=== PATIENT | female | born 1935 | race Caucasian/White ===

== ENCOUNTER 2020-03-08 16:28 | Emergency (ER) | payer MEDICARE, OTHER, SELFPAY ==
[2020-03-08 16:29] VITALS: BP 151/83; PULSE 60; RESP 15; TEMP 36.5; O2SAT 94; BMI 31.1
--- NOTE | 2020-03-08 16:42 | EKG12_ITS ---
Test Reason : Blood Pressure : / mmHG Vent. Rate : 050 BPM Atrial Rate : 050 BPM P-R Int : 152 ms QRS Dur : 098 ms QT Int : 502 ms P-R-T Axes : 050 -03 031 degrees QTc Int : 457 ms Sinus bradycardia Minimal voltage criteria for LVH, may be normal variant Borderline ECG Confirmed by NIKA DE, CONNOR ([id number]), material expeditor MARYLOU DUMONT ([id number]) on 03/10/2020 3:21:46 PM Referred By: GRACIELA Confirmed By:CONNOR MAHER MD
--- NOTE | 2020-03-08 16:42 | CT_ITS ---
STUDY: CT BRAIN WITHOUT CONTRAST REASON FOR EXAM: Female, 84 years old. ATAXIA RADIATION DOSAGE (If Supplied By Facility): CTDIvol = ( 44.99 ) mGy, DLP = ( 762.36 ) mGycm TECHNIQUE: Transaxial CT imaging of the brain was performed without administration of intravenous contrast material. Individualized dose optimization techniques were used for this CT. COMPARISON: No relevant priors. FINDINGS: Normal soft tissue structures. Normal calvarium. There is moderate cerebral atrophy with widening of the extra-axial spaces and ventricular dilatation. There are areas of decreased attenuation within the white matter tracts of the supratentorial brain, consistent with microvascular disease changes. There is no intracranial hemorrhage. There are no findings of an acute ischemic infarction. Normal visualized paranasal sinuses. CT/Brain/Head without Contrast IMPRESSION: 1. No acute findings. 2. Microvascular ischemia. Atrophy. Electronically Signed: Yoselyn Vazquez MD at 18:32 EDT Tel , Service support ,
--- NOTE | 2020-03-08 16:44 | ED.VIS.GEN ---
History of Present Illness Chief Complaint: Dizziness Informant: Patient, Family Onset: Yesterday Narrative: Patient states that she has had dizziness since yesterday. When asked what she means by dizziness she states is very hard for her to describe it. She states it feels like her head is bobbing. I asked her if she has a sense that the room is spinning and she tells me know but 2 minutes later tells me yes. She states that it is not all the time and only when she gets up and walks around. However her daughter tells me that she was complaining of it when they were sitting in the car driving. Daughter states that she seemed to have problems walking but was able to walk back to the room without difficulty. Daughter tells me they took her heart rate and it was into the 50s. They do not know what her resting heart rate typically is. She denies any headache. No speech difficulty. No arm or leg weakness. No sensory changes. She denies any recent falls. No fevers. No chest pains or palpitations. No changes in recent medications. Daughter tells me the patient has a history of dementia Of note the patient takes metoprolol 100 mg twice daily. Please see MAR for complete list Past Medical History - Allergies and Home Meds Allergies/Adverse Reactions: Allergies No Known Allergies Allergy (Verified 07/14/15 08:34) Primary Care Physician: Juan Carlos Riley MD [Primary Care Provider] - Smoking Status: Never smoker Review of Systems General: Reports: - - Vague sense of dizziness/lightheadedness. Denies: Chills, Fever, Sweats Eyes: Reports: - - No tinnitus. Denies: Visual changes - bilaterally, Diplopia ENT: Denies: Rhinorrhea, Sore throat Cardiovascular: Denies: Chest pain, Palpitations Respiratory: Denies: Dyspnea, Cough, Dyspnea on exertion Gastrointestinal: Denies: Abdominal pain, Nausea, Vomiting, Diarrhea, Melena, Hematochezia Genitourinary: Denies: Dysuria, Hematuria, Frequency Musculoskeletal: Denies: Back pain, Extremity Pain Skin: Denies: Rash, Wounds Neurological: Denies: Headache, Weakness, Numbness Physical Exam Vital Signs/Narrative: Vital Signs Temp Pulse Resp BP Pulse Ox 03/08/20 16:29 97.7 F L 60 15 151/83 H 94 Inital Vital Signs reviewed: Yes General: Well nourished, Well developed, No Acute Distress Head: Normocephalic, Atraumatic Eyes: Perrl, EOMI, - - No nystagmus ENT: Moist mucous membranes, No rhinorrhea, - - Hard of hearing Neck: Supple, Nontender Cardiovascular: Regular rate, Regular rhythm, No murmurs Respiratory: No distress, CTA bilaterally, Chest nontender Abdomen: Soft, Nontender, Nondistended, Normal bowel sounds Back: Nontender, Normal Inspection Extremities: Nontender, No edema Skin: Normal color, No rash Neurological: Alert, Oriented x3, Cranial nerves II-XII grossly intact, Normal Strength, Normal Sensation, Normal Gait Psychological: Normal affect, Normal Mood Diagnostic/Tx/Re-eval - Medical Decision Making Patient's EKG shows a sinus bradycardia at a rate of 50. Basic labs are negative. Chest x-ray negative. CT of the brain negative. Orthostatics show a pretty consistent heart rate in the 50s but no orthostatic hypotension. I personally watched her ambulate several times and she is not ataxic. I get the sense that what she is trying to convey to us by saying the word dizzy is more of a lightheaded sensation. This I believe is probably due to a heart rate in the 50s. I have confirmed with the daughter her dose of metoprolol. She is actually on 50 twice a day. We can have her drop this down to 25 twice a day. She is to monitor her heart rate and record that and her blood pressure couple times a day and follow-up with her doctor in the week. They were advised that there may need to be further changes to her medications. If she is feeling unsafe or starting to have falls she needs to return to the emergency department. If there are any worsening symptoms they are welcome to return at any time. ED Disposition - Plan for ED Patient: Disposition: Home or Assisted Living Diagnosis: Symptomatic sinus bradycardia Instructions: ED Bradycardia Referrals: Juan Carlos Riley MD [Primary Care Provider] - 1 Week Additional Instructions: Please note the medication change below: Metoprolol 25 mg twice a day. (You may cut your 50 mg tablets in half).
--- NOTE | 2020-03-08 17:05 | RAD_ITS ---
STUDY: X-RAY CHEST REASON FOR EXAM: Female, 84 years old. Dizziness today TECHNIQUE: PA and lateral views of the chest. COMPARISON: None. FINDINGS: The lungs are clear and expanded. There is no demonstrated pleural abnormality. Normal size heart. Normal mediastinum and olaf. Normal visualized pulmonary arteries. Normal visualized aortic arch and descending thoracic aorta. Normal visualized thoracic spine. Normal visualized ribs, clavicles, and shoulders. There is no demonstrated abnormality of the visualized soft tissue structures of the upper abdomen. RAD/Chest PA and Lateral IMPRESSION: Normal x-ray examination of the chest. Electronically Signed: Yoselyn Vazquez MD at 17:20 EDT Tel , Service support ,
[2020-03-08 17:09] LABS: Absolute Lymphocyte Count 2.16 X10^3/uL (0.83-4.51); Absolute Neutrophil Count 3.5 X10^3/uL (2.0-7.7); Basophil# 0.05 X10^3/uL; Basophil% 0.8 % (0-1); Eosinophil# 0.27 X10^3/uL; Eosinophils% 4.2 % (0-5); Hematocrit 46.2 % (37-47); Hemoglobin 15.3 g/dL (12.0-15.0); Lymphocyte # 2.16 X10^3/ul (4.0); Lymphocyte % 33.3 % (19-41); Mean Corp Hgb Conc 33.1 g/dL (32-36); Mean Corpuscular Hgb 31.9 pg (27.0-32.0); Mean Corpuscular Volume 96.3 fL (81-99); Mean Platelet Vol. 10.2 fl (6.2-12.0); Monocyte# 0.51 X10^3/uL; Monocyte% 7.9 % (0-10); NRBC Flagged by Analyzer 0 % (0-5); Neutrophil # 3.49 X10^3/uL (2.7-7.7); Neutrophil % 53.6 % (47-70); Platelet Count 281 K/mm3 (150-450); RBC Distribution Width CV 13.4 % (11.6-14.6); RBC Distribution Width SD 47.8 fl (35.1-43.9); White Blood Count 6.5 K/mm3 (4.4-11.0)
[2020-03-08 17:28] VITALS: BP 125/68; PULSE 54; RESP 14; O2SAT 95
[2020-03-08 17:32] VITALS: BP 127/62; BP 128/73; BP 131/68; PULSE 52; PULSE 53; PULSE 58
[2020-03-08 17:38] LABS: AST(SGOT) 21 U/L (15-37); Alanine Aminotransfer ALT/SGPT 25 U/L (13-56); Albumin, Serum 3.8 g/dL (3.2-5.0); Alkaline Phosphatase 60 U/L (45-117); Anion Gap 7 (5-15); BUN 19 mg/dL (7-18); Calcium,Total 8.7 mg/dL (8.5-10.1); Chloride 112 mmol/L (98-107); EST Glomerular Filtration Rate 56 mL/min (>60); Est Glom Filt Rate - Afr Amer 68 mL/min (>60); Globulin 3.7 g/dL (2.2-4.2); Glucose 103 mg/dL (74-106); Potassium 3.7 mmol/L (3.5-5.1); Protein, Total 7.5 g/dL (6.4-8.2); Sodium Level 142 mmol/L (136-145)
[2020-03-08 17:58] LABS: Mucous, Urine 0 SEEN /hpf (<or=2+); Red Blood Cells-Urine 0 SEEN /hpf (0-5)
[2020-03-08 18:26] LABS: Color, Urine Yellow (Yellow); Glucose, Dipstick Normal (Normal); Ketone-Dipstick Negative (Negative); Leukocyte Esterase-Dipstick Negative /ul (Negative); Nitrite-Dipstick Negative (Negative); Occult Blood-Urine Negative /ul (Negative); Protein-Dipstick Negative (Negative); Urine Bilirubin Dipstick Negative (Negative); Urine Clarity Cloudy (Clear); Urine Urobilinogen Normal (Normal)
[2020-03-08 18:51] LABS: Hyaline Cast 0-5 SEEN /lpf (0-5)
[2020-03-08 18:52] LABS: Bacteria 1+ /hpf (None Seen); White Blood Cells 0-5 SEEN /hpf (0-5)
[2020-03-08 18:53] LABS: Squamous Epithelial Cells - UA 5-10 SEEN /hpf (5-10)
[2020-03-08 19:07] VITALS: BP 117/58; PULSE 49; RESP 18; O2SAT 96
== END 2020-03-08 19:10 | disposition home or self-care (01) ==
PROVIDERS: Emergency Provider Emergency Medicine; PCP Family Medicine
DX: R00.1 Bradycardia, unspecified (principal); F03.90 Unspecified dementia, unspecified severity, without behavioral disturbance, psychotic disturbance, mood disturbance, and anxiety
CPT/HCPCS: 70450; 71046; 80053; 81001; 84484; 85025; 93005; 99285

== ENCOUNTER 2020-12-02 15:35 | Emergency (ER) | payer MEDICARE, OTHER, SELFPAY ==
[2020-12-02 15:36] VITALS: BP 151/77; PULSE 90; RESP 18; TEMP 36.7; O2SAT 98; BMI 30.3
--- NOTE | 2020-12-02 15:51 | EKG12_ITS ---
Test Reason : Blood Pressure : / mmHG Vent. Rate : 075 BPM Atrial Rate : 075 BPM P-R Int : 146 ms QRS Dur : 092 ms QT Int : 412 ms P-R-T Axes : 049 006 036 degrees QTc Int : 460 ms Normal sinus rhythm with sinus arrhythmia Nonspecific ST and T wave abnormality Abnormal ECG Confirmed by NIKA DE, CONNOR ([id number]), editor map FALGUNI WHITE ([id number]) on 12/07/2020 10:43:54 AM Referred By: KENNEDY Confirmed By:CONNOR MAHER MD
--- NOTE | 2020-12-02 15:55 | ED.DCSUM_ITS ---
History of Present Illness Chief Complaint: Rash Detail of Chief Complaint: I do not feel well Informant: Patient, Family Onset: Today Context: Sudden Onset Timing: Continuous Quality: Neurolyse weakness, documented temperature 101.1, facial rash Location: Bilateral Current Severity: Moderate Maximum Severity: Moderate Worsened by: Nothing Relieved by: Nothing Associated Symptoms: Malaise, generalized weakness, fever Narrative: Patient was seen yesterday at the [facility]. She was diagnosed with shingles. She was placed on antiviral. Daughter took a picture. The rash did cross midline on the forehead. The rash is erythematous. There is no blistering or crusting noted. Daughter states she had a document temperature 101.1. Daughter states she is not her normal self. She is not disoriented, however. Daughter is concerned about her eyes. When asked specifically what her concerns were she responded look at them . She denies headache. Denies double vision or blurred vision. She does report drainage from her right eye. She also reports decreased hearing. She denies sore throat. She feels like there is phlegm stuck in her throat. She denies shortness of breath or cough. Denies chest pain. She denies nausea, vomiting diarrhea. She denies urologic symptoms. Her urine was tested at the [facility] and was negative. 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 (3) Anxiety and depression Status: Chronic (4) Hypertension Status: Chronic (5) Obesity (BMI 30.0-34.9) Status: Chronic Past Medical History - Allergies and Home Meds Allergies/Adverse Reactions: Allergies promethazine [From Phenergan] Adverse Reaction (Verified 12/02/20 15:41) PT UNSURE OF REACTION Primary Care Physician: Juan Carlos Riley MD [Primary Care Provider] - Prior records reviewed: Yes Surgical History: - - Bowel resection at [facility] 2016 for colon cancer Lives: With Family Smoking Status: Never smoker Alcohol: None Drugs: None Review of Systems General: Reports: Chills, Fever, Malaise. Denies: Subjective Eyes: Reports: - - Neutral right eye. Denies: Visual changes - bilaterally, Blurred Vision - bilaterally, Diplopia ENT: Reports: Sore throat - Limb and throat, - - Decreased hearing. Denies: Rhinorrhea Cardiovascular: Denies: Chest pain, Palpitations Respiratory: Denies: Dyspnea, Cough, Sputum, Dyspnea on exertion Gastrointestinal: Denies: Abdominal pain, Nausea, Vomiting, Diarrhea Genitourinary: Denies: Dysuria, Hematuria, Frequency Musculoskeletal: Denies: Myalgias, Arthralgias, Neck pain, Back pain, Swelling, Extremity Pain Skin: Reports: Rash. Denies: Abscess, Abrasions Neurological: Reports: Headache, Weakness. Denies: Parasthesia, Numbness Endocrine: Denies: Polyuria, Polydipsia Hematologic: Denies: Easy bruising Physical Exam Vital Signs/Narrative: Vital Signs Temp Pulse Resp BP Pulse Ox 12/02/20 15:36 98.0 F 90 18 151/77 H 98 Inital Vital Signs reviewed: Yes General: Well nourished, Well developed, Obese, No Acute Distress Head: Normocephalic, Atraumatic Eyes: Perrl, EOMI, - - Is injected on the right and there is drainage noted.. Negative for: Pale conjunctiva, Scleral icterus ENT: Moist mucous membranes, No rhinorrhea, - - Has erythematous rash bilateral consistent with erysipelas Neck: Supple, Nontender, No lymphadenopathy, No JVD Cardiovascular: Regular rate, Regular rhythm, No murmurs, Normal S1, Normal S2 Respiratory: No distress, CTA bilaterally, Chest nontender Abdomen: Soft, Nontender, Nondistended, Normal bowel sounds Rectal: Deferred Back: Nontender, Normal Inspection. Negative for: CVA tenderness Extremities: Nontender, No edema Skin: Normal color, Rash. Negative for: Cyanosis, Diaphoresis, Jaundice Neurological: Oriented x3, Cranial nerves II-XII grossly intact, Normal Strength, Normal Sensation, Normal DTR. Negative for: Alert - Patient is awake Psychological: - - Affect is flat Diagnostic/Tx/Re-eval Laboratory Results 12/02/20 12/02/20 16:14 16:14 WBC 10.5 RBC 4.88 Hgb 14.9 Hct 45.7 MCV 93.6 MCH 30.5 MCHC 32.6 RDW Std Deviation 45.1 H RDW Coeff of Esdras 13.2 Plt Count 258 MPV 9.9 Immature Gran % (Auto) 0.400 Neut % (Auto) 80.4 H Lymph % (Auto) 10.1 L Rush % (Auto) 7.2 Eos % (Auto) 1.5 Baso % (Auto) 0.4 Absolute Neuts (auto) 8.4 H Absolute Lymphs (auto) 1.06 Nucleated RBC % 0 Sodium 138 Potassium 3.4 L Chloride 108 H Carbon Dioxide 24.0 Anion Gap 6 BUN 9 Creatinine 1.01 Estim Creat Clear Calc 38.82 Est GFR (MDRD) Af Amer 67 Est GFR (MDRD) Non-Af 56 L BUN/Creatinine Ratio 8.9 L Glucose 120 H Calcium 9.2 Total Bilirubin 0.80 AST 12 L ALT 18 Alkaline Phosphatase 70 Total Protein 7.8 Albumin 3.4 Globulin 4.4 H Albumin/Globulin Ratio 0.8 L - Medical Decision Making Document temperature 101.1 heart rate of 90 and evidence of erysipelas we will treat with Unasyn for skin infection and sepsis work-up was initiated. Based on the picture of the daughter took and the fact that the rash across midline doubt this is shingles. Patient disposition per afternoon physician Dr. Abraham Espinosa ED Disposition - Plan for ED Patient: Diagnosis: Erysipelas Referrals: Juan Carlos Riley MD [Primary Care Provider] -
[2020-12-02 16:22] VITALS: BP 130/73; PULSE 77; RESP 21; O2SAT 96
[2020-12-02 16:25] LABS: Absolute Lymphocyte Count 1.06 X10^3/uL (0.83-4.51); Absolute Neutrophil Count 8.4 X10^3/uL (2.0-7.7); Basophil# 0.04 X10^3/uL; Basophil% 0.4 % (0-1); Eosinophil# 0.16 X10^3/uL; Eosinophils% 1.5 % (0-5); Hematocrit 45.7 % (37-47); Hemoglobin 14.9 g/dL (12.0-15.0); Lymphocyte # 1.06 X10^3/ul (4.0); Lymphocyte % 10.1 % (19-41); Mean Corp Hgb Conc 32.6 g/dL (32-36); Mean Corpuscular Hgb 30.5 pg (27.0-32.0); Mean Corpuscular Volume 93.6 fL (81-99); Mean Platelet Vol. 9.9 fl (6.2-12.0); Monocyte# 0.76 X10^3/uL; Monocyte% 7.2 % (0-10); NRBC Flagged by Analyzer 0 % (0-5); Neutrophil # 8.44 X10^3/uL (2.7-7.7); Neutrophil % 80.4 % (47-70); Platelet Count 258 K/mm3 (150-450); RBC Distribution Width CV 13.2 % (11.6-14.6); RBC Distribution Width SD 45.1 fl (35.1-43.9); Red Blood Count 4.88 M/mm3 (4.2-5.4); White Blood Count 10.5 K/mm3 (4.4-11.0)
[2020-12-02] MEDS: 0.9% Normal Saline 1,000 ML 250 ML IV (16:25)
[2020-12-02 16:48] LABS: ALB/GLOB Ratio 0.8 RATIO (0.9-2.4); AST(SGOT) 12 U/L (15-37); Alanine Aminotransfer ALT/SGPT 18 U/L (13-56); Albumin, Serum 3.4 g/dL (3.2-5.0); Alkaline Phosphatase 70 U/L (45-117); Anion Gap 6 (5-15); BUN 9 mg/dL (7-18); BUN/Creat Ratio 8.9 RATIO (10-20); Calcium,Total 9.2 mg/dL (8.5-10.1); Chloride 108 mmol/L (98-107); Creatinine, Serum 1.01 mg/dL (0.55-1.02); EST Glomerular Filtration Rate 56 mL/min (>60); Est Glom Filt Rate - Afr Amer 67 mL/min (>60); Estimated Creatinine Clearance 38.82 ml/min; Globulin 4.4 g/dL (2.2-4.2); Glucose 120 mg/dL (74-106); Potassium 3.4 mmol/L (3.5-5.1); Protein, Total 7.8 g/dL (6.4-8.2); Sodium Level 138 mmol/L (136-145)
[2020-12-02 16:58] LABS: Prothrombin Time (Protime)PT. 13.1 SECONDS (11.7-14.9)
[2020-12-02 16:59] LABS: Partial Thromboplast Time 31.2 Seconds (24.1-36.2)
[2020-12-02 17:01] LABS: Lactic Acid 1.2 mmol/L (0.4-1.9)
[2020-12-02 18:33] VITALS: PULSE 71; RESP 19; TEMP 37.2; O2SAT 99
--- NOTE | 2020-12-02 18:51 | ED.VISSUMM ---
- ER Visit Summary Date of Service: 12/02/20 This patient was checked out to me with labs pending. Test Results: Abnormal Lab Results 12/02/20 12/02/20 12/02/20 16:14 16:14 16:14 WBC 10.5 RBC 4.88 Hgb 14.9 Hct 45.7 MCV 93.6 MCH 30.5 MCHC 32.6 RDW Std Deviation 45.1 H RDW Coeff of Esdras 13.2 Plt Count 258 MPV 9.9 Immature Gran % (Auto) 0.400 Neut % (Auto) 80.4 H Lymph % (Auto) 10.1 L Carver % (Auto) 7.2 Eos % (Auto) 1.5 Baso % (Auto) 0.4 Absolute Neuts (auto) 8.4 H Absolute Lymphs (auto) 1.06 Nucleated RBC % 0 PT 13.1 INR 1.0 APTT 31.2 Sodium 138 Potassium 3.4 L Chloride 108 H Carbon Dioxide 24.0 Anion Gap 6 BUN 9 Creatinine 1.01 Estim Creat Clear Calc 38.82 Est GFR (MDRD) Af Amer 67 Est GFR (MDRD) Non-Af 56 L BUN/Creatinine Ratio 8.9 L Glucose 120 H Lactic Acid Calcium 9.2 Total Bilirubin 0.80 AST 12 L ALT 18 Alkaline Phosphatase 70 Total Protein 7.8 Albumin 3.4 Globulin 4.4 H Albumin/Globulin Ratio 0.8 L 12/02/20 16:14 WBC RBC Hgb Hct MCV MCH MCHC RDW Std Deviation RDW Coeff of Esdras Plt Count MPV Immature Gran % (Auto) Neut % (Auto) Lymph % (Auto) Carver % (Auto) Eos % (Auto) Baso % (Auto) Absolute Neuts (auto) Absolute Lymphs (auto) Nucleated RBC % PT INR APTT Sodium Potassium Chloride Carbon Dioxide Anion Gap BUN Creatinine Estim Creat Clear Calc Est GFR (MDRD) Af Amer Est GFR (MDRD) Non-Af BUN/Creatinine Ratio Glucose Lactic Acid 1.2 Calcium Total Bilirubin AST ALT Alkaline Phosphatase Total Protein Albumin Globulin Albumin/Globulin Ratio Emergency Department Course and Treatment: Patient received Unasyn IV. She is resting comfortably. Treatment Plan: I discussed the lab results with the patient. She feels well and would like to go home. She clearly has erysipelas and will be placed on amoxicillin. Follow-up with her primary care physician in 2 days for a wound check. Return to the emergency department for any worsening symptoms. Disposition: To home in improved and stable condition. Impression: 1. Erysipelas to the maxilla bilaterally. This note was generated with [employer] dictation software. It may contain incorrect words, spelling, and punctuation that were not noted in review of the chart prior to signing ED Disposition - Plan for ED Patient: Disposition: Home or Assisted Living Diagnosis: Erysipelas Instructions: ED Cellulitis, Facial Prescriptions: Amoxicillin 500 mg PO TID #21 tab Prescription Printed Ondansetron [Zofran Odt] 4 mg PO Q8H PRN PRN #10 tab PRN Reason: Nausea Prescription Printed Referrals: Juan Carlos Riely MD [Primary Care Provider] - 2 Days
[2020-12-02 19:23] VITALS: BP 138/91; PULSE 70; RESP 15; O2SAT 98
== END 2020-12-02 19:24 | disposition home or self-care (01) ==
PROVIDERS: Emergency Provider Emergency Medicine; PCP Family Medicine
DX: A46 Erysipelas (principal); I10 Essential (primary) hypertension; F32.9 Major depressive disorder, single episode, unspecified; F41.9 Anxiety disorder, unspecified; E66.9 Obesity, unspecified; R23.3 Spontaneous ecchymoses; Z79.899 Other long term (current) drug therapy
CPT/HCPCS: 80053; 83605; 85025; 85610; 85730; 87040; 93005; 96365; 96366; 99285; J7030; A4216; J0295

== ENCOUNTER 2021-06-22 16:40 | Emergency (ER) | payer MEDICARE, OTHER, SELFPAY ==
[2021-06-22 16:40] VITALS: BP 115/61; PULSE 66; RESP 18; TEMP 36.8; O2SAT 97; BMI 29.8
--- NOTE | 2021-06-22 17:15 | RAD_ITS ---
STUDY: X-RAY - LEFT ANKLE REASON FOR EXAM: Female, 85 years old. FELL DOWN STAIRS TECHNIQUE: 3 view(s) of the ankle. COMPARISON: None. FINDINGS: Normal visualized distal tibia and fibula. Normal medial and lateral malleoli. Normal tibiotalar articulation and ankle mortise. Normal visualized talus and calcaneus. The visualized subtalar, talonavicular, calcaneocuboid and tarsal articulations are normal. There is no demonstrated fracture. The soft tissue structures are unremarkable. RAD/Ankle min 3 Views IMPRESSION: No visualized acute process Electronically Signed: Tico Andrade MD at 18:35 EDT , Service support ,
--- NOTE | 2021-06-22 17:18 | RAD_ITS ---
STUDY: X-RAY - LEFT FOOT CLINICAL: Female, 85 years old. FALL TECHNIQUE: 3 view(s) of the foot. COMPARISON: None. FINDINGS: Normal talus, calcaneus, and tarsal bones. Normal visualized subtalar, talonavicular, calcaneocuboid, tarsal and tarsometatarsal articulations. A healed fracture deformity of the second metatarsal base is present. Scattered degenerative changes are present throughout the foot. Mild degenerative narrowing of the MTP and IP joints throughout the foot. The soft tissue structures are unremarkable. There is no demonstrated fracture. RAD/Foot min 3 Views IMPRESSION: 1. No visualized acute process. 2. A healed fracture deformity of the second metatarsal base is present. Electronically Signed: Tico Andrade MD at 18:42 EDT , Service support ,
--- NOTE | 2021-06-22 17:49 | EDS_ITS ---
HPI History of Present Illness Chief Complaint: Lower Extremity Injury Informant: patient and family Occured/Mechanism Mechanism/Context: Yes fall Onset/Context/Timing Onset: Today Quality of Pain: Aching Current Severity: Mild Maximum Severity: Mild Narrative Narrative: Patient presents with pain to her left foot and ankle after a fall. She was coming down some steps and fell down the last 1 or 2 steps. She is complaining of pain to the left foot and ankle. She denies any other injury. She is not on anticoagulants. [facility] Medical History Anxiety and depression Cauda equina spinal cord injury Dementia Hypertension Home Medications topiramate 25 mg PO BID 07/17/15 [History Last Taken 12/02/20] acetaminophen 500 mg PO Q6H PRN PRN 07/21/15 [History Last Taken 12/01/20] amoxicillin 500 mg PO TID #21 tab 12/02/20 [Rx Last Taken Unknown] citalopram 40 mg PO DAILY 12/02/20 [History Last Taken 12/02/20] donepezil 10 mg PO QHS 12/02/20 [History Last Taken 12/01/20] fenofibrate nanocrystallized 145 mg PO DAILY 12/02/20 [History Last Taken 12/02/20] memantine 10 mg PO BID 12/02/20 [History Last Taken 12/02/20] ondansetron 4 mg PO Q8H PRN PRN #10 tab 12/02/20 [Rx Last Taken Unknown] quinapril 40 mg PO DAILY 12/02/20 [History Last Taken 12/02/20] valacyclovir 1,000 mg PO TID 12/02/20 [History Last Taken 12/02/20] Allergy/AdvReac Type Severity Reaction Status Date / Time promethazine [From Phenergan] AdvReac PT UNSURE Verified 06/22/21 16:42 OF REACTION Surgical History Status post lumbar laminectomy Social History Smoking Status: Never smoker ROS ROS ED Constitutional Constitutional ED: Denies chills or fever(s) Eyes Eyes: Denies change in vision ENT ENT ED: Denies sore throat Cardiovascular Cardiovascular: Denies chest pain Respiratory/Chest Respiratory/Chest: Denies cough or dyspnea Gastrointestinal Gastrointestinal: Denies abdominal pain, diarrhea, nausea or vomiting Genitourinary Genitourinary ED: Denies dysuria Musculoskeletal Musculoskeletal: Reports arthralgias; Denies back pain Integumentary Denies rash Neurologic Neurologic: Denies headache(s) or weakness Allergic/Immunologic Allergic/Immunologic ED: Denies urticaria EXAM Physical Exam Const Vital Signs: 06/22/21 16:40 Temperature 98.2 F Temperature Source Temporal Pulse Rate 66 Respiratory Rate 18 Blood Pressure 115/61 Blood Pressure Mean 79 Pulse Ox 97 Oxygen Delivery Method Room Air Positive well nourished and well developed General Appearance ED: well developed HEENT Reports normocephalic and head/scalp atraumatic Eyes PERRL and EOMs intact bilaterally Neck supple Chest Wall inspection of chest normal and palpation of chest normal Resp normal respiratory effort and clear to auscultation bilaterally Cardio regular rate and regular rhythm GI normal to inspection, nondistended, normoactive bowel sounds Palpation: soft Extremity normal to inspection Extremity Narrative: Tenderness to palpation across the proximal metatarsals. Mild tenderness at the lateral malleolus. No significant edema, ecchymosis, abrasions noted. Strong distal pulses with full range of motion. No tenderness of the proximal fibula or knee. Neuro oriented x3 and no sensory deficits noted Sensorium / Orientation: alert Motor Exam: strength 5/5 throughout Psych mental status grossly normal Skin no rashes or lesions noted MDM MDM MDM Narrative Medical decision making narrative: Patient declined anything for pain. Left foot and ankle x-rays were obtained per nursing protocol. Radiography Diagnostic Testing: Radiology Impression Ankle X-Ray 06/22/21 17:15 IMPRESSION: No visualized acute process Electronically Signed: Tico Andrade MD at 18:35 EDT , Service support , Foot X-Ray 06/22/21 17:18 IMPRESSION: 1. No visualized acute process. 2. A healed fracture deformity of the second metatarsal base is present. Electronically Signed: Tico Andrade MD at 18:42 EDT , Service support , Treatment and Re-Evaluation Comments:: Per my interpretation appears the patient has an old well-healed fracture in her foot. I do not see any acute fractures in the foot or ankle. Radiologist interpretation is reviewed and concurs. Lam wrap was applied to the left foot and ankle. She may weight-bear as tolerated. Discharge Plan Triage Chief Complaint: Lower Extremity Injury ED Provider: Ammy Lauren Dx/Rx/DC Orders Clinical Impression: Sprain of left foot, Sprain of ankle, left Instructions: ED Foot Sprain, ED Ankle Sprain (Adult) Prescriptions: No Action topiramate 25 MG tablet 25 mg PO BID RF: 0 acetaminophen 500 MG tablet 500 mg PO Q6H PRN PRN (Reason: Mild Pain) RF: 0 citalopram 40 MG tablet 40 mg PO DAILY RF: 0 valacyclovir 1,000 MG tablet 1,000 mg PO TID RF: 0 quinapril 40 MG tablet 40 mg PO DAILY RF: 0 memantine 10 MG tablet 10 mg PO BID RF: 0 donepezil 10 MG tablet,disintegrating 10 mg PO QHS RF: 0 fenofibrate nanocrystallized 145 MG tablet 145 mg PO DAILY RF: 0 amoxicillin 500 MG tablet 500 mg PO TID Qty: 21 RF: 0 ondansetron 4 MG tablet 4 mg PO Q8H PRN PRN (Reason: Nausea) Qty: 10 RF: 0 Primary Care Provider: Juan Carlos Riley Referrals: Juan Carlos Riley MD [Primary Care Provider] - 10-14 Days if not better Disposition Disposition: Home, Self Care
== END 2021-06-22 19:23 | disposition home or self-care (01) ==
PROVIDERS: Emergency Provider Emergency Medicine; PCP Family Medicine
DX: S93.602A Unspecified sprain of left foot, initial encounter (principal); S93.402A Sprain of unspecified ligament of left ankle, initial encounter; W10.9XXA Fall (on) (from) unspecified stairs and steps, initial encounter; Y93.01 Activity, walking, marching and hiking; Y92.9 Unspecified place or not applicable; Y99.8 Other external cause status; I10 Essential (primary) hypertension; F03.90 Unspecified dementia, unspecified severity, without behavioral disturbance, psychotic disturbance, mood disturbance, and anxiety; F32.9 Major depressive disorder, single episode, unspecified; F41.9 Anxiety disorder, unspecified; Z79.899 Other long term (current) drug therapy
CPT/HCPCS: 73610; 73630; 99282

== ENCOUNTER 2022-03-17 13:53 | Emergency (ER) | payer MEDICARE, OTHER, SELFPAY ==
[2022-03-17 13:55] VITALS: BP 96/83; PULSE 100; RESP 18; TEMP 36; O2SAT 95; BMI 32.5
--- NOTE | 2022-03-17 14:34 | EKG12_ITS ---
Test Reason : CP WITH COUGHING Blood Pressure : / mmHG Vent. Rate : 094 BPM Atrial Rate : 094 BPM P-R Int : 152 ms QRS Dur : 092 ms QT Int : 376 ms P-R-T Axes : 060 021 248 degrees QTc Int : 470 ms Normal sinus rhythm ST & T wave abnormality, consider inferior ischemia ST & T wave abnormality, consider anterolateral ischemia Prolonged QT Abnormal ECG Confirmed by NIKA DE, CONNOR ([id number]), offline editor FALGUNI WHITE ([id number]) on 03/21/2022 12:49:47 PM Referred By: SANDEE/GEOFF Confirmed By:CONNOR MAHER MD
--- NOTE | 2022-03-17 14:42 | EDS_ITS ---
HPI History of Present Illness Chief Complaint: Shortness of Breath Informant: patient and family Narrative Narrative: Patient here with granddaughter 6 to 7-day history of symptoms. Initial sinus congestion, patient taken to urgent care proxy 5 days ago diagnosed with sinus infection and put on Z-Wilfred last dose today. Since yesterday increasing productive cough. per granddaughter had chest pains yesterday. However currently patient denies any other symptoms. PCP was contacted yesterday placed on inhaler for wheezing and [place] states wheezing improving. However cough has been persistent. Patient denies fevers. Denies headache. Denies vomiting or diarrhea. Denies any history of asthma or COPD. Reported COVID testing urgent care negative and home test also negative. Patient is vaccinated had the booster, had COVID 2 days after booster in October. [facility] Medical History Anxiety and depression Cauda equina spinal cord injury Dementia Hypertension Home Medications topiramate 25 mg PO BID 07/17/15 [History Last Taken 12/02/20] acetaminophen 500 mg PO Q6H PRN PRN 07/21/15 [History Last Taken 12/01/20] citalopram 40 mg PO DAILY 12/02/20 [History Last Taken 12/02/20] donepezil 10 mg PO QHS 12/02/20 [History Last Taken 12/01/20] fenofibrate nanocrystallized 145 mg PO DAILY 12/02/20 [History Last Taken 12/02/20] memantine 10 mg PO BID 12/02/20 [History Last Taken 12/02/20] ondansetron 4 mg PO Q8H PRN PRN #10 tab 12/02/20 [Rx Last Taken Unknown] quinapril 40 mg PO DAILY 12/02/20 [History Last Taken 12/02/20] Allergy/AdvReac Type Severity Reaction Status Date / Time promethazine [From Phenergan] AdvReac PT UNSURE Verified 03/17/22 13:55 OF REACTION Surgical History Status post lumbar laminectomy Social History Smoking Status: Never smoker ROS ROS ED Constitutional Constitutional ED: Denies chills, fever(s) or sweats Eyes Eyes: Denies change in vision ENT ENT ED: Denies dysphagia or sore throat Cardiovascular Cardiovascular: Denies chest pain, leg edema, palpitations or racing heartbeat Respiratory/Chest Respiratory/Chest: Reports cough and dyspnea; Denies dyspnea on exertion Gastrointestinal Gastrointestinal: Denies abdominal pain, diarrhea, nausea or vomiting Genitourinary Genitourinary ED: Denies dysuria, hematuria or urinary frequency Musculoskeletal Musculoskeletal: Denies back pain, extremity pain or neck pain Integumentary Denies rash or wounds Neurologic Neurologic: Denies headache(s), paresthesias or weakness EXAM Physical Exam Const Vital Signs: 03/17/22 13:55 03/17/22 14:57 03/17/22 16:23 Temperature 96.8 F L 96.8 F L Temperature Source Temporal Temporal Pulse Rate 100 100 77 Respiratory Rate 18 18 21 H Blood Pressure 96/83 H 96/83 H Blood Pressure Mean 87 87 Pulse Ox 95 95 93 Oxygen Delivery Method Room Air Room Air Positive well nourished and well developed Constitutional Narrative: Hard of hearing. General Appearance ED: well developed and NAD HEENT Reports moist mucous membranes normocephalic and atraumatic Eyes PERRL, EOMs intact bilaterally and conjunctivae normal General Eye ED: Yes normal appearance of both eyes Neck no lymphadenopathy and supple General: Negative for tenderness Chest Wall Chest: Negative for tenderness Resp normal respiratory effort and normal air movement Effort and Inspection: symmetric chest movement; Negative for respiratory distress Cardio regular rate, regular rhythm and no murmurs Peripheral Pulses: pulses 2+ throughout GI normal to inspection, nondistended, normoactive bowel sounds and non-tender Palpation: Negative for guarding or rebound tenderness present Back/Spine no CVA tenderness and no thoracic nor lumbar tenderness Extremity normal to inspection General Extremety ED: Negative for edema or tenderness General Extremity: Negative for edema Neuro oriented x3 and no sensory deficits noted Sensorium / Orientation: awake and alert Skin no rashes or lesions noted and no wounds MDM MDM MDM Narrative Medical decision making narrative: Patient denies any current chest pains however granddaughter stated she reported symptoms yesterday. Vital stable. EKG with new T wave inversions lateral leads. Laboratory work including troponin will be ordered chest x-ray. We will recheck COVID testing. 1615: Chest x-ray 1 view reviewed by myself and read by radiology shows no acute process. Laboratory studies normal normal white count troponin was negative. COVID testing obtained and negative. Discussed with patient and family likely viral syndrome. We will continue inhaler for wheezing as needed. Continue oral fluids for hydration. Discussed symptoms should improve with time. I discussed EKG abnormalities with new T wave inversions, possibility of echocardiogram for further work-up as an outpatient. All questions were answered. Lab Data Attestation: I reviewed the patient's lab results. Labs: Laboratory Results - last 24 hr 03/17/22 03/17/22 15:05 15:05 WBC 6.9 RBC 5.08 Hgb 15.9 H Hct 47.7 H MCV 93.9 MCH 31.3 MCHC 33.3 RDW Std Deviation 46.3 H RDW Coeff of Esdras 13.3 Plt Count 234 MPV 10.4 Immature Gran % (Auto) 0.300 Neut % (Auto) 84.2 H Lymph % (Auto) 6.6 L Baker % (Auto) 6.3 Eos % (Auto) 1.9 Baso % (Auto) 0.7 Absolute Neuts (auto) 5.8 Absolute Lymphs (auto) 0.46 L Nucleated RBC % 0 Differential Comment SCANNED Sodium 140 Potassium 3.9 Chloride 111 H Carbon Dioxide 20.0 L Anion Gap 9 BUN 18 Creatinine 0.95 Estim Creat Clear Calc 37.39 Est GFR (MDRD) Af Amer 72 Est GFR (MDRD) Non-Af 60 BUN/Creatinine Ratio 19.0 Glucose 172 H Calcium 9.1 Troponin I High Sens 3 Radiography Diagnostic Testing: Clinical Impression(s) from Imaging Studies Chest X-Ray 03/17/22 15:10 IMPRESSION: No acute abnormality is seen. Electronically Signed: Sid Yao MD at 15:23 EDT , EKG Initial EKG: Attestation: I personally reviewed and interpreted this EKG as follows: Comments: Sinus rate of 94, no ST changes there is diffuse T wave invers ions inferior lateral leads, compared to November 2020 T wave versions new on V4 to V6. Discharge Plan Triage Chief Complaint: Shortness of Breath Other Complaint: Chest Pain Fatigue ED Provider: Francisco Javier Zarate Dx/Rx/DC Orders Clinical Impression: Acute bronchitis, viral, Dementia Instructions: Acute Bronchitis Prescriptions: No Action topiramate 25 MG tablet 25 mg PO BID RF: 0 acetaminophen 500 MG tablet 500 mg PO Q6H PRN PRN (Reason: Mild Pain) RF: 0 citalopram 40 MG tablet 40 mg PO DAILY RF: 0 quinapril 40 MG tablet 40 mg PO DAILY RF: 0 memantine 10 MG tablet 10 mg PO BID RF: 0 donepezil 10 MG tablet,disintegrating 10 mg PO QHS RF: 0 fenofibrate nanocrystallized 145 MG tablet 145 mg PO DAILY RF: 0 ondansetron 4 MG tablet 4 mg PO Q8H PRN PRN (Reason: Nausea) Qty: 10 RF: 0 Primary Care Provider: Juan Carlos Riley Referrals: Juan Carlos Riley MD [Primary Care Provider] - Activity Restrictions/Additional Instructions: Negative chest x-ray. Labs were stable troponin negative. EKG notes new T wave inversions on V4 to V6. Possible echocardiogram as an outpatient further work- up is needed. Continue symptomatic treatment for your cough. Continue your inhaler for wheeze. Follow-up with your doctor. COVID testing also negative again. Disposition Disposition: Home, Self Care Discharge Date/Time: 03/17/22 16:30
[2022-03-17 14:57] VITALS: BP 96/83; PULSE 100; RESP 18; TEMP 36; O2SAT 95
--- NOTE | 2022-03-17 15:10 | RAD_ITS ---
STUDY: X-RAY CHEST REASON FOR EXAM: Female, 86 years old. Cough TECHNIQUE: Single AP portable view of the chest. COMPARISON: Comparison is made with prior study 03/08/2020. FINDINGS: EKG electrodes are seen. The lungs are clear and expanded. There is no demonstrated pleural abnormality. Normal size heart. Normal mediastinum and olaf. Normal visualized pulmonary arteries. There is atherosclerotic tortuosity of the aortic arch and descending thoracic aorta. There are diffuse degenerative changes of the visualized thoracic spine. There is degenerative osteoarthritis of the bilateral shoulders. There is no demonstrated abnormality of the visualized soft tissue structures of the upper abdomen. RAD/Chest 1 View (Portable) IMPRESSION: No acute abnormality is seen. Electronically Signed: Sid Yao MD at 15:23 EDT ,
[2022-03-17 15:15] LABS: Absolute Lymphocyte Count 0.46 X10^3/uL (0.83-4.51); Absolute Neutrophil Count 5.8 X10^3/uL (2.0-7.7); Basophil# 0.05 X10^3/uL; Basophil% 0.7 % (0-1); Eosinophil# 0.13 X10^3/uL; Eosinophils% 1.9 % (0-5); Hematocrit 47.7 % (37-47); Hemoglobin 15.9 g/dL (12.0-15.0); Lymphocyte # 0.46 X10^3/ul (0.83-4.51); Lymphocyte % 6.6 % (19-41); Mean Corp Hgb Conc 33.3 g/dL (32-36); Mean Corpuscular Hgb 31.3 pg (27.0-32.0); Mean Corpuscular Volume 93.9 fL (81-99); Mean Platelet Vol. 10.4 fl (6.2-12.0); Monocyte# 0.44 X10^3/uL; Monocyte% 6.3 % (0-10); NRBC Flagged by Analyzer 0 % (0-5); Neutrophil # 5.83 X10^3/uL (2.7-7.7); Neutrophil % 84.2 % (47-70); POSITIVE DIFFERENTIAL YES; Platelet Count 234 K/mm3 (150-450); RBC Distribution Width CV 13.3 % (11.6-14.6); RBC Distribution Width SD 46.3 fl (35.1-43.9); Red Blood Count 5.08 M/mm3 (4.2-5.4); White Blood Count 6.9 K/mm3 (4.4-11.0)
[2022-03-17 15:22] LABS: Differential Indicated SCAN CRITERIA MET
[2022-03-17 15:50] LABS: Anion Gap 9 (5-15); BUN 18 mg/dL (7-18); Calcium,Total 9.1 mg/dL (8.5-10.1); Chloride 111 mmol/L (98-107); Creatinine, Serum 0.95 mg/dL (0.55-1.02); Differential Comment SCANNED; EST Glomerular Filtration Rate 60 mL/min (>60); Est Glom Filt Rate - Afr Amer 72 mL/min (>60); Estimated Creatinine Clearance 37.39 ml/min; Glucose 172 mg/dL (74-106); Potassium 3.9 mmol/L (3.5-5.1); Sodium Level 140 mmol/L (136-145); Troponin-I HS 3 pg/mL (3.0-54.0)
[2022-03-17 16:23] VITALS: PULSE 77; RESP 21; O2SAT 93
== END 2022-03-17 16:30 | disposition home or self-care (01) ==
PROVIDERS: Emergency Provider Emergency Medicine; PCP Family Medicine; Visit Provider Emergency Medicine
DX: J20.9 Acute bronchitis, unspecified (principal); F03.90 Unspecified dementia, unspecified severity, without behavioral disturbance, psychotic disturbance, mood disturbance, and anxiety; I10 Essential (primary) hypertension; F32.A Depression, unspecified; Z79.899 Other long term (current) drug therapy
CPT/HCPCS: 71045; 80048; 84484; 85025; 87811; 93005; 96360; 99284; J7040; A4216

== ENCOUNTER 2022-12-09 19:01 | Emergency (ER) | payer MEDICARE, OTHER, SELFPAY ==
[2022-12-09 19:02] VITALS: PULSE 62; O2SAT 97
--- NOTE | 2022-12-09 19:32 | EDS_ITS ---
HPI History of Present Illness Chief Complaint: CPR Informant: family and EMS Limited: coma Onset/Context/Timing Onset: Today Context: Sudden Onset Timing: Continuous Quality: Weakness Location: Generalized Narrative Narrative: Patient presents cardiopulmonary arrest. Daughter noted that the patient had a episode of urinary incontinence. Daughter stated that the patient was going to go up the stairs to change her close. Daughter found her sitting on the steps at the bottom of the steps and said she was too weak to be able to go up the steps. Daughter stated she was calling 911. On EMS arrival, patient was feeling weak. In route to the emergency department, the patient became unres ponsive and lost her pulse. EMS started CPR and administered a total of 2 mg of epinephrine. CPR was in progress when they presented to the emergency department. [facility] Medical History (Updated 12/09/22 @ 19:[address] Adien Flynn, DO) Hypertension unable to obtain unable to obtain ROS ROS ED Review of Systems ROS Unobtainable: due to endotracheal tube and due to mental condition EXAM Physical Exam Const Vital Signs: 12/09/22 19:02 Pulse Rate [9] 62 General Appearance ED: pallor HEENT normocephalic and atraumatic Resp Resp Narrative: There is no spontaneous respiratory effort noted. Breath sounds were equal bilaterally with mechanical ventilation. Cardio Cardio Narrative: There were no heart tones auscultated. GI non-distended Palpation: soft Extremity Extremity Narrative: There is pallor and cyanosis of the extremities. There are no radial or femoral pulses palpated. Neuro Neuro Narrative: Patient is unresponsive. Patient has no spontaneous movements. Skin General Skin Exam: pallor MDM MDM MDM Narrative Medical decision making narrative: CPR was continued here in the emergency department. ACLS protocols were followed. Patient was given epinephrine every 3 minutes. Patient was intubated with a 7.5 ET tube to 25 cm at the lip. [place] scope was used. There is good color change on capnography. There are equal breath sounds. Patient did get a pulse back. When pulse was returned, there was a sinus tachycardia noted initially. This then became a wide-complex tachycardia. Patient was given 300 mg of amiodarone. Patient then became bradycardic and lost her pulse. CPR was reinitiated. Patient was given more epinephrine every 3 minutes. There were no pulses palpated at any rhythm check. I discussed the situation with the family. At this point, they wanted to stop CPR. This was done. Patient was pronounced at 1927. Family understood. All questions were answered. Procedures Intubations Intubation Method: orotracheal Intubation Verification: Positive color change Intubation Complications: no complications Critical Care Time Critical Care Time: Yes Critical care time (excluding procedures): 30-74 minutes (32), Including time spent:, Discussing w/Patient &/or Family/Semiconductor Equipment Technician, Discussing w/Consultants, Arranging Admission or Transfer and Performing Direct Patient Care at Bedside Discharge Plan Triage Chief Complaint: CPR ED Provider: Aiden Flynn Dx/Rx/DC Orders Clinical Impression: Cardiopulmonary arrest, Hemoptysis, History of hypertension Primary Care Provider: Juan Carlos Riley Referrals: Juan Carlos Riley MD [Primary Care Provider] - Disposition Disposition: Date/Time: 12/09/22 19:27
--- NOTE | 2022-12-09 20:08 | ED.RN ---
THIS RN ATTEMPTED TO CALL PT SISTER AT REQUEST OF PT DAUGHTER. WILMA FERNANDO [phone]. SISTER DID NOT ANSWER.
--- NOTE | 2022-12-09 20:15 | CM.ED ---
SW Note Referral Source: Code Blue Referral Reason: Emotional Support SW met with patient's daughter, granddaughter and her significant other and introduced herself and role as [facility] [employer]. EMS that brought patient was present and informed patient's daughter of the events that occurred as patient arrived to [facility], and explained the patient was still currently receiving chest compressions. SW explained the patient's MD senior architect would provide an update when things changed. SW provided emotional support and inquired about contacting other family. Patient's daughter reports she had already contacted patient's sister, declined any other contact. SW met with family after patient had passed to provide emotional support. SW also reviewed Hospice resource for bereavement services. Patient's family was receptive as they have used the resource before. No other needs voiced at this time. Home staff present and meeting with family. Latrice Kong MSW, NATHALY
== END 2022-12-09 23:59 ==
PROVIDERS: Emergency Provider Emergency Medicine; PCP Family Medicine; Visit Provider Emergency Medicine
DX: I46.9 Cardiac arrest, cause unspecified (principal); I10 Essential (primary) hypertension; R04.2 Hemoptysis
CPT/HCPCS: 31500; 99291; J7030; A4216